=== PATIENT | female | born 1995 | race Two or more races ===

== ENCOUNTER 2019-11-01 06:39 | Outpatient (CLI) | payer OTHER | END 2019-11-01 06:55 | disposition home or self-care (01) | LOC: LAB 06:39 | PROVIDERS: ATTEND Specialist | DX: G35 Multiple sclerosis (principal); E03.8 Other specified hypothyroidism; N39.0 Urinary tract infection, site not specified; E78.79 Other disorders of bile acid and cholesterol metabolism; E53.8 Deficiency of other specified B group vitamins; E55.9 Vitamin D deficiency, unspecified; E11.9 Type 2 diabetes mellitus without complications ==

== ENCOUNTER 2019-11-01 07:59 | Outpatient (CLI) | payer OTHER | END 2019-11-01 08:01 | disposition home or self-care (01) | LOC: MRI 07:59 | PROVIDERS: ATTEND Specialist | DX: G35 Multiple sclerosis (principal); R13.19 Other dysphagia | CPT/HCPCS: 70553 ==

== ENCOUNTER 2019-11-01 11:33 | Outpatient (CLI) | payer OTHER | END 2019-11-01 11:37 | disposition home or self-care (01) | LOC: LAB 11:33 | PROVIDERS: ATTEND Radiology Diagnostic Radiology | DX: N20.0 Calculus of kidney (principal) ==